=== PATIENT | female | born 1970 | race Caucasian/White ===

== ENCOUNTER 2024-09-10 09:49 | Day surgery (SDC) | payer OTHER ==
[~2024-09-10] VITALS: Ht 162.6 cm; Wt 54.9 kg
[~2024-09-10 09:49] MED LIST: BUPR150T12 PO; FLUO1CRE2 TOP; PHENYLEPHRINE 10% OPHTH SOL 5ML OS PRN
[2024-09-10] MEDS: LIDOCAINE 3.5 % 1ML OPHTH TOPICAL GEL OU ONE (11:00)
[2024-09-10] MEDS: OFLOXACIN 0.3 % (OCUFLOX) OPTH SOL 5ML OS ONE (11:00)
[2024-09-10] MEDS ORDERED: MIDAZOLAM INJ 2MG/2ML VIAL As Ordered ONE (11:30)
[2024-09-10] MEDS: PHENYLEPHRINE 2.5% OPHTH SOL 2ML OS SCH (11:45)
[2024-09-10] MEDS: BSS IRRIG/VANCO(10MG)/TOBRA(5MG)/EPINEPH(1:1000-0.5CC)500ML BAG-ORONLY As Ordered ONE (11:45)
[2024-09-10] MEDS: TROPICAMIDE 1% OPHTH SOLN 15ML OS SCH (11:45)
[2024-09-10] MEDS: LIDOCAINE 1% SDV 5ML VIAL As Ordered ONE (11:45)
[2024-09-10] MEDS: ATROPINE SULFATE 1% OPHTH SOLN 2ML BTL OS SCH (11:45)
[2024-09-10] MEDS: CEFUROXIME 1MG/0.1ML INTRACAMERAL INJ As Ordered ONE (11:46)
[2024-09-10 12:00] VITALS: BP 123/77; TEMP 97.3; O2SAT 98
== END 2024-09-10 12:30 | disposition home or self-care (01) ==
LOC: M SDC 09:49
PROVIDERS: ATTEND Ophthalmology
DX: H25.12 Age-related nuclear cataract, left eye (principal); Z85.828 Personal history of other malignant neoplasm of skin; Z92.21 Personal history of antineoplastic chemotherapy; Z87.19 Personal history of other diseases of the digestive system; Z79.899 Other long term (current) drug therapy; Z87.891 Personal history of nicotine dependence; Z90.89 Acquired absence of other organs
CPT/HCPCS: 66984; 81025; J0697; J2250; V2632